=== PATIENT | male | born 1965 | race Caucasian/White ===

== ENCOUNTER 2024-05-09 13:23 | Emergency (ER) | payer BC ==
[2024-05-09] MEDS ORDERED: Boostrix 0.5 ML (Tdap) VIAL (>/=7 yrs of age) ONE (13:37)
[2024-05-09] MEDS ORDERED: Morphine 4 MG/ML VIAL ONE (15:41)
[2024-05-09] MEDS ORDERED: Cyclobenzaprine 10 MG TAB ONE (15:41)
[2024-05-09] MEDS ORDERED: Ondansetron PF 4 MG/2 ML Vial ONE (15:41)
== END 2024-05-09 16:12 | disposition home or self-care (01) ==
LOC: ERS 13:23
DX: S42.111A Displaced fracture of body of scapula, right shoulder, initial encounter for closed fracture (principal); W10.9XXA Fall (on) (from) unspecified stairs and steps, initial encounter
CPT/HCPCS: 70450; 71045; 71260; 72125; 90471; 90715; 94760; 96374; 96375; G0390; J2272; J2405

== ENCOUNTER 2025-02-24 08:06 | Outpatient (CLI) | payer BC ==
[2025-02-24] MEDS ORDERED: Iopamidol 370 76% 100 ML VIAL ONE (11:52)
== END 2025-02-24 08:07 | disposition home or self-care (01) ==
LOC: CT 08:06
PROVIDERS: ATTEND Nurse Practitioner Primary Care
DX: R91.8 Other nonspecific abnormal finding of lung field (principal)
CPT/HCPCS: 71260; Q9967